=== PATIENT | female | born 2000 | race African-American/Black ===

== ENCOUNTER 2019-03-25 22:17 | Emergency (ER) | payer MEDICAID ==
[~2019-03-25] VITALS: Ht 157.5 cm; Wt 75.0 kg
[2019-03-25] MEDS ORDERED: ONDANSETRON HCL 4MG/2ML INJ IV STA (22:49)
[2019-03-25] MEDS ORDERED: SODIUM CHLORIDE 0.9% 1,000 ML IV ONE (22:49)
[2019-03-25 23:36] LABS: HEMATOCRIT. 37.5 % (36.0-48.0); HEMOGLOBIN. 11.9 g/dL (12.0-16.0); MEAN CORPUSCULAR HEMOGLOBIN 20.8 pg (28.0-32.0); MEAN CORPUSCULAR VOLUME 65.8 fL (81.0-99.0); MEAN PLATELET VOLUME 7.7 fl (7.4-10.4); PLATELET 265 x1000/uL (130-400); RED CELL DISTRIBUTION WIDTH 16.6 % (11.6-14.6)
[2019-03-25 23:43] LABS: CHLORIDE 107 mEq/L (98-107)
[2019-03-25] MEDS ORDERED: KETOROLAC 30MG/ML VIAL IV ONE (23:45)
[2019-03-26] LABS: COLOR URINE AMBER (YELLOW); KETONES URINE NEGATIVE (NEGATIVE); LEUKOCYTE ESTERASE URINE NEGATIVE (NEGATIVE); NITRITE URINE NEGATIVE (NEGATIVE); OCCULT BLOOD URINE NEGATIVE (NEGATIVE); PH URINE 5.5 (4.5-8.0); PROTEIN URINE NEGATIVE (NEGATIVE); SPECIFIC GRAVITY URINE 1.028 (1.005-1.030); UROBILINOGEN URINE 0.2 E.U./dL (0.2-1.0)
[2019-03-26 00:04] LABS: CLARITY URINE CLEAR (CLEAR)
[2019-03-26 03:00] VITALS: BP 126/84
[2019-03-26 03:52] LABS: PLATELET ESTIMATE NORMAL
== END 2019-03-26 03:04 | disposition home or self-care (01) ==
LOC: ER 03-26 02:16
DX: R10.0 Acute abdomen (principal); R11.2 Nausea with vomiting, unspecified
CPT/HCPCS: 36415; 74018; 76705; 80053; 81003; 81025; 83690; 85025; 96361; 96374; 96375; 99284; J1885; J2405; J7030; Z7610